=== PATIENT | male | born 1990 | race African-American/Black ===

== ENCOUNTER 2016-08-09 17:08 | Emergency (ER) | payer SELFPAY ==
[~2016-08-09] VITALS: Ht 185.4 cm; Wt 71.8 kg
[2016-08-09] MEDS ORDERED: ZOFRAN ODT4 MG PO (18:01)
[2016-08-09] MEDS ORDERED: ERYTHROMYC1 APPLICAT LEFT EYE (18:01)
[2016-08-09 18:12] VITALS: BP 123/76
== END 2016-08-09 18:13 | disposition home or self-care (01) ==
LOC: EME 17:08
DX: H00.015 Hordeolum externum left lower eyelid (principal); H00.014 Hordeolum externum left upper eyelid; F17.200 Nicotine dependence, unspecified, uncomplicated
CPT/HCPCS: 99281; 99283